=== PATIENT | female | born 1945 | race Asian ===

== ENCOUNTER 2019-09-03 14:02 | Emergency (ER) | payer MEDICARE, OTHER ==
[~2019-09-03] VITALS: Ht 147.3 cm; Wt 55.4 kg
[~2019-09-03 14:02] MED LIST: ATEN25TA PO; HYDR12.517 PO
--- NOTE | 2019-09-03 14:24 | NUR ---
THIS IS A 73 YO F W/ C/O "EXHAUSTION" PT STATES SHE HAS NOT BEEN ABLE TO SLEEP X1 WEEK, SINCE HER WAS ADMITTED FOR COVID19. PT DENIES SOB/FEVER/CHILLS. PT STATES SHE HAS OCCASIONAL DRY COUGHX1 WEEK. PT STATES SHE WAS [facility] RESP EVEN AND UNLABORED. VS STABLE. NADN. PT IS RESTING ON Max Rumpus W/ CALL LIGHT IN REACH. IN ROOM FOR EVAL. AWAITING LABS/CXR.
--- NOTE | 2019-09-03 14:34 | NUR ---
RAD IN ROOM.
--- NOTE | 2019-09-03 14:39 | NUR ---
TASK RN: RN CALLED HEALTH DEPARTMENT TO OBTAIN RESULTS FOR COVID TESTING DONE YESTERDAY. PT IS + COVID. PRIMARY RN AND PIERCE INFORMED.
--- NOTE | 2019-09-03 14:39 | NUR ---
LAB IN ROOM.
[2019-09-03 15:08] LABS: ALBUMIN 3.6 g/dL (3.4-5.0); ANION GAP 5 mmol/L (5-15); CALCIUM 8.3 mg/dL (8.5-10.1); CHLORIDE 105 mmol/L (98-107); CREATININE 0.92 mg/dL (0.55-1.02)
[2019-09-03 15:41] LABS: MEAN CORPUSCULAR HGB CONC 33.9 g/dL (32.4-35.8); MEAN CORPUSCULAR VOLUME 94.3 fL (80-100); MEAN PLATELET VOLUME 7.4 fL (7.4-10.4); PLATELET COUNT 132 x10^3/uL (130-400); RED BLOOD COUNT 3.99 x10^6/uL (3.82-5.3); RED CELL DISTRIBUTION WIDTH 13.7 % (9.6-15.2)
[2019-09-03 16:02] VITALS: BP 144/68
[2019-09-03 16:33] LABS: MD YES
[2019-09-03 16:38] LABS: BAND#(MANUAL) 0.19 x10^3/uL; BANDS%(MANUAL) 7 % (0-7); LYMPH#(MANUAL) 1.08 x10^3/uL (1-3.4); LYMPHS% (MANUAL) 40 % (22-44); MONOS#(MANUAL) 0.19 x10^3/uL (0.3-2.7); MONOS% (MANUAL) 7 % (2-9); SEG#(MANUAL) 1.24 x10^3/uL (1.8-6.8); SEGS% (MANUAL) 46 % (42-75)
[2019-09-03 16:39] LABS: <PLATELET ESTIMATE> ADEQUATE; <PLT MORPHOLOGY> NORMAL PLT MORPH; <RBC MORPHOLOGY> NORMAL
--- NOTE | 2019-09-03 17:07 | NUR ---
PT AMBULATED TO THE BR W/ A STEADY GAIT.
--- NOTE | 2019-09-03 17:09 | NUR ---
Patient given discharge instructions and they have confirmed that they understand the instructions. Patient ambulatory with steady gait.
== END 2019-09-03 17:34 | disposition home or self-care (01) ==
LOC: ED 14:28
DX: B34.9 Viral infection, unspecified (principal); I10 Essential (primary) hypertension
CPT/HCPCS: 36415; 71045; 80048; 82040; 83605; 83880; 85025; 87040; 99284

== ENCOUNTER 2019-09-05 16:13 | Emergency (ER) | payer OTHER ==
[~2019-09-05] VITALS: Ht 147.3 cm; Wt 54.5 kg
--- NOTE | 2019-09-05 17:06 | NUR ---
PT WAS STATES SHE HAS BEEN HAVING COUGH AND BODY ACHES FOR FOUR DAYS. PT DENIES CP. PT STATES SOME MILD SOB. PT AND WERE TESTED FOR COVID MONDAY AND THEY HAD POSITIVE RESULTS. PT CURRENTLY RESTING ON GURNEY, NO RESP DISTRESS NOTED SATING 95%RA. PT SPEAKING IN FULL SENTANCES. PT TO BP, CARD MONTIOR, CONT PULSE OX
[2019-09-05 17:11] VITALS: BP 141/74
[2019-09-05 17:34] LABS: MD YES; MEAN CORPUSCULAR HEMOGLOBIN 31.6 pg (27.0-34.8); MEAN CORPUSCULAR HGB CONC 33.6 g/dL (32.4-35.8); MEAN CORPUSCULAR VOLUME 93.9 fL (80-100); MEAN PLATELET VOLUME 7.2 fL (7.4-10.4); PLATELET COUNT 125 x10^3/uL (130-400); RED BLOOD COUNT 4.12 x10^6/uL (3.82-5.3); RED CELL DISTRIBUTION WIDTH 13.6 % (9.6-15.2)
[2019-09-05 17:47] LABS: ALBUMIN 3.4 g/dL (3.4-5.0); ANION GAP 7 mmol/L (5-15); CALCIUM 8.3 mg/dL (8.5-10.1); CHLORIDE 104 mmol/L (98-107)
[2019-09-05 17:52] LABS: ALANINE AMINOTRANSFERASE 18 U/L (12-78); ALKALINE PHOSPHATASE 88 U/L (45-117); BILIRUBIN,TOTAL 0.4 mg/dL (0.2-1.0); CREATININE 0.97 mg/dL (0.55-1.02); TOTAL PROTEIN 8.1 g/dL (6.4-8.2); TROPONIN I < 0.015 ng/mL (0.000-0.045)
[2019-09-05 18:05] LABS: <PLATELET ESTIMATE> ADEQUATE; <PLT MORPHOLOGY> NORMAL PLT MORPH; <RBC MORPHOLOGY> NORMAL; BANDS%(MANUAL) 3 % (0-7); BASOS#(MANUAL) 0.03 x10^3/uL (0-0.1); BASOS% (MANUAL) 1 % (0-1); LYMPH#(MANUAL) 1.35 x10^3/uL (1-3.4); LYMPHS% (MANUAL) 41 % (22-44); MONOS#(MANUAL) 0.13 x10^3/uL (0.3-2.7); MONOS% (MANUAL) 4 % (2-9); SEG#(MANUAL) 1.68 x10^3/uL (1.8-6.8); SEGS% (MANUAL) 51 % (42-75)
== END 2019-09-05 18:47 | disposition home or self-care (01) ==
LOC: ED 16:49
DX: U07.1 COVID-19 (principal); J06.9 Acute upper respiratory infection, unspecified; I10 Essential (primary) hypertension; R07.9 Chest pain, unspecified
CPT/HCPCS: 36415; 71045; 80053; 84484; 85025; 93005